=== PATIENT | female | born 1935 | race Caucasian/White ===

== ENCOUNTER → 2017-10-16 | Outpatient (CLI) | payer MEDICARE ==
[~2017-10-16] MED LIST: ADVI200T17 PO; ECASA81 PO; LISI10TA3 PO; VITA-142 PO; VITA10002 PO; VITA250T3 PO
[2017-10-16 10:51] LABS: AUTOMATED NEUTROPHIL # 3.7 TH/MM3 (1.8-7.7); BASOPHIL # 0.1 TH/MM3 (0-0.2); EOSINOPHIL # 0.3 TH/MM3 (0-0.4); EOSINOPHIL % 4.3 % (0.0-4.0); HEMATOCRIT 41.2 % (35.0-46.0); HEMOGLOBIN 13.6 GM/DL (11.6-15.3); LYMPH % 22.9 % (9.0-44.0); LYMPHOCYTE # 1.4 TH/MM3 (1.0-4.8); MEAN CELL VOLUME 89.8 FL (80.0-100.0); MEAN CORPUSCULAR HEMOGLOBIN 29.7 PG (27.0-34.0); MEAN CORPUSCULAR HGB CONC 33.1 % (32.0-36.0); MEAN PLATELET VOLUME 7.8 FL (7.0-11.0); MONO % 9.9 % (0.0-8.0); MONOCYTE # 0.6 TH/MM3 (0-0.9); NEUT % 61.9 % (16.0-70.0); PLATELET COUNT 238 TH/MM3 (150-450); RED BLOOD COUNT 4.58 MIL/MM3 (4.00-5.30); RED CELL DISTRIBUTION WIDTH 14.2 % (11.6-17.2)
[2017-10-16 10:57] LABS: PROTHROMBIN TIME - PATIENT 10.5 SEC (9.8-11.6)
[2017-10-16 10:58] LABS: BILIRUBIN, URINE NEG (NEG); BLOOD, URINE NEG (NEG); GLUCOSE,URINE NEG (NEG); KETONE, URINE NEG (NEG); MUCUS URINE FEW /lpf (OCC); NITRITE,URINE NEG (NEG); PH, URINE 5.5 (5.0-8.5); SQUAMOUS EPITHELIAL CELL URINE <1 /hpf (0-5); URINE COLOR YELLOW (YELLW/STRAW); URINE LEUKOCYTE ESTERASE NEG (NEG)
--- NOTE | 2017-10-16 11:01 | RADRPT ---
EXAM DATE/TIME: 10/16/2017 10:34 [facility] COMPARISON: No previous studies available for comparison. INDICATIONS : Evaluate for pneumonia, pneumothorax, and communicable disease. Preop for left knee arthroplasty. MEDICAL HISTORY : None. SURGICAL HISTORY : Hysterectomy. Appendectomy. Fatty tumor removal. ENCOUNTER: Initial ACUITY: 1 day PAIN SCORE: 0/10 LOCATION: Bilateral chest FINDINGS: Lungs are focally clear. No pleural effusion is evident. Cardiac contour is satisfactory. A moderate size hiatal hernia is present. There is degenerative change in the spine and mild accentuation of kyp hosis. CONCLUSION: No acute disease. Russ Singh MD on October 16, 2017 at 10:58 Board Certified Radiologist. This report was verified electronically.
[2017-10-16 11:06] LABS: BICARBONATE 28.4 MEQ/L (21.0-32.0); CALCIUM 9.5 MG/DL (8.5-10.1); CREATININE 0.85 MG/DL (0.50-1.00)
--- NOTE | 2017-10-16 13:41 | EKG ---
Date Performed: 10/16/2017 Time Performed: 09:36:58 PTAGE: 82 years EKG: Sinus rhythm NORMAL ECG No significant change from prior electrocardiogram. DOCTOR: Yared Hercules Interpretating Date/Time 10/16/2017 13:21:06
== END ==
LOC: CPRE 08:25
PROVIDERS: ATTEND Orthopaedic Surgery
DX: M23.90 Unspecified internal derangement of unspecified knee (principal); Z01.812 Encounter for preprocedural laboratory examination; Z01.810 Encounter for preprocedural cardiovascular examination; Z01.811 Encounter for preprocedural respiratory examination
CPT/HCPCS: 36415; 71046; 80048; 81001; 85025; 85610; 93005

== ENCOUNTER 2017-10-21 08:17 | Inpatient (IN) | payer MEDICARE ==
--- NOTE | 2017-10-17 15:47 | MH ---
cc: Fredy Rod MD DATE OF ADMISSION: 10/21/2017 ADMITTING DIAGNOSIS: Severe osteoarthritis of the left knee, varus deformity, left knee, pain of left knee and gait disturbance. HISTORY OF PRESENT ILLNESS: The patient is an 82-year-old white female with a longstanding history of bilateral knee pain. She had initially presented to the undersigned physician in January of 2015 complaining of bilateral knee pain of at least 5 years' duration, having been somewhat more pronounced on the right side. At that time, she noted that she had undergone previous arthroscopic surgery in approximately 1996, with an uneventful recovery being noted. Over the passage of time, thereafter, she developed obvious arthritic changes, initially being more pronounced on the right side for which she did to conform to conservative management, including use of anti-inflammatory medication. Her symptoms became more pronounced and, thus, in March 2015, she underwent right total knee arthroplasty, which was completed in an uncomplicated manner. The patient was noted to have tolerated her operative procedure well and her postoperative course was stable thereafter, but during this interval time, she experienced progressive pain about her left knee that became increasingly more symptomatic with the passage of time. She continued to conform to a therapy exercise program as had been instructed following her right knee surgery and utilizing anti-inflammatory medication, which included both Aleve and diclofenac that she was taking on a routine basis. During this interval of time, she also underwent several cortisone injections about the left knee without any long-term benefit being noted. Her symptoms handicapped her ability to conform to weightbearing activities for which she was utilizing a cane as an ambulatory aid. She returned to the office in more recent followup indicating that she was significantly handicapped with regard to her weightbearing activities and her daily routine, for which she was considering additional options for treatment. Her current x-ray studies revealed severe degenerative changes with [id number] apposition about the medial compartment, associated with a varus deformity of greater than 10 degrees magnitude. Once again, the involvement of total knee replacement was outlined with emphasis being made that the decision to proceed with surgery would be left entirely to the patient's discretion. The patient readily admitted that her symptoms had progressed to that point in time where she was ready to proceed in this direction and in compliance with her wishes, she has been scheduled for admission in order that the above be accomplished. PAST MEDICAL HISTORY, HOSPITALIZATIONS AND SURGERIES: In addition to her right total knee arthroplasty include radiation therapy of the uterus, followed by complete hysterectomy for history of cervical cancer, appendectomy, lipoma excision lower back area. Her current medical illnesses include hypertension for which she takes lisinopril 10 mg daily. She also takes an 81 mg aspirin tablet daily. ADDITIONAL MEDICATIONS: Include vitamin B12, vitamin C and vitamin E. She also takes Advil on a p.r.n. basis. ALLERGIES: THE PATIENT DESCRIBES A DRUG ALLERGY TO LIPITOR, WHICH HAS CAUSED CHEST PAIN, LATEX AND ADHESIVE TAPE HAVE CAUSED A RASH FORMATION. REVIEW OF SYSTEMS: She wears glasses. No headache, seizure or syncope. She has occasional sinus congestion with postnasal drip. No epistaxis. Auditory acuity intact. No tinnitus. No bleeding gums. She has occasional dysphagia. Wears partial upper and lower dentures. No cough, shortness of breath, upper respiratory infection, pneumonia or tuberculosis. No angina or heart disease. She is medically managed for hypertension. Appetite good. Bowel movements regular. No hepatitis, gallbladder disease or ulcers. There is a history of hemorrhoids. No urinary tract infection, no kidney stones. No history of fractures. No psychiatric illness. Her remaining review of systems is unremarkable and noncontributory. FAMILY HISTORY: The patient has been a for at least 21 years. at 63 years of age with a history of multiple sclerosis. Two daughters, both with history of thyroid disease. Her family history is otherwise positive for hypertension, heart disease, lung disease, dementia, tuberculosis, throat cancer, breast cancer and cancer of the brain area. 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 She completed a high school education. Denies active use of tobacco since 39 years of age, having been less than a 1 pack per day smoker for approximately 16 years previous. Ethanol consumption in the form of several beers per week. PHYSICAL EXAMINATION: VITAL SIGNS: Height 5 feet, weight 137 pounds. GENERAL: An alert, oriented, responsive 82-year-old white female who sits quietly upon the examination table, with no apparent distress. HEAD, EARS, EYES, NOSE AND THROAT: Pupils are equally round and reactive to light. Extraocular movements full. Sclerae are clear. External nares clear. External auditory canals clear. Dental intact, with dental bridges in place. Mucous membranes pink and moist. Pharynx clear. NECK: Supple, active mobility, with no significant pain. Carotid pulse palpable bilaterally. Trachea midline. Thyroid without enlargement. Fullness about the thyroid area is noted. LUNGS: Clear to auscultation and percussion. BACK: No CVA tenderness. No discomfort throughout the dorsolumbar spine. CARDIOVASCULAR: Regular rhythm. No murmur or gallop. ABDOMEN: Soft, nontender, bowel sounds present. PELVIC: Per primary care physician. EXTREMITIES: Left knee, there is a fullness about the knee consistent with redundancy of soft tissue. Medial joint line tenderness, without palpable deformity. Apprehension and compression sign negative. Pain is elicited within the 110 degree range of flexion with crepitation associated. 1+ collateral ligamentous laxity. Octaviano test and drawer sign negative. Pivot shift and Dionicio sign positive for medial compartment pain. Straight leg raising unremarkable at 80 degrees. Satisfactory mobility of the left hip, with no associated pain. Antalgic gait. NEUROLOGIC: Cranial nerves 2-12 grossly intact. IMPRESSION: Severe osteoarthritis of the left knee, varus deformity, left knee, pain left knee and gait disturbance. PLAN: Left total knee arthroplasty. Once again, the nature of the planned surgical procedure, the potential complications and risks associated, the expectations of surgery and the consent form were thoroughly reviewed with the patient in the presence of her grandson prior to admission to the hospital. Tonya has indicated her full understanding regarding all of the above and given consent to proceed with treatment as outlined. Medical evaluation and clearance for surgery will be completed by her primary care physician, Dr. Tavia Longoria. MD MITESH Maldonado/OLIVER , 05:01 PM , 05:38 PM
[~2017-10-21] VITALS: Ht 152.4 cm; Wt 62.4 kg
[2017-10-21] MEDS ORDERED: POVIDONE IODINE 5% (ANTISEPSIS KIT) 4 APPLICATIONS EACH NARE PRN (08:45)
[2017-10-21] MEDS ORDERED: LACTATED RINGER'S 1000 ML IV PRN (08:45)
[2017-10-21] MEDS ORDERED: TRANEXAMIC ACID 1 GM POST-OP IV SCH ×2 (08:45)
[2017-10-21] MEDS ORDERED: TRANEXAMIC ACID 1 GM PRIOR TO PROCEDURE IV SCH ×2 (08:45)
[2017-10-21] MEDS ORDERED: METOPROLOL TARTRATE 25 MG TAB PO PRN (08:45)
[2017-10-21] MEDS ORDERED: POVIDONE IODINE 7.5% SCRUB 118 ML BOTTLE TOPICAL SCH (08:45)
[2017-10-21] MEDS ORDERED: SODIUM CHLORID 0.9% 500 ML IV PRN (08:45)
[2017-10-21] MEDS ORDERED: CHLORHEXIDINE GLUCONATE 2 % 1 PACK (2 CLOTHS) TOPICAL PRN (08:45)
[2017-10-21] MEDS ORDERED: INSULIN HUMAN REGULAR 1,000 UNITS/10 ML VIAL SQ PRN (08:45)
[2017-10-21] MEDS ORDERED: MIDAZOLAM HCL 2 MG/2 ML VIAL ONE (09:22)
[2017-10-21] MEDS ORDERED: MIDAZOLAM HCL 2 MG/2 ML VIAL IV PUSH ONE (09:30)
[2017-10-21] MEDS ORDERED: ceFAZolin INJ 1,000 MG VIAL ONE (09:34)
[2017-10-21] MEDS ORDERED: BUPIVACAINE LIPOSOME PF 1.3% 20 ML VIAL ONE (09:37)
[2017-10-21] MEDS ORDERED: ROCURONIUM INJ 50 MG/5 ML SYRINGE IV PUSH ONE (12:00)
[2017-10-21] MEDS ORDERED: LIDOCAINE HCL 1% PF 5 ML SYRINGE OTHER ONE (12:00)
[2017-10-21] MEDS ORDERED: PROPOFOL 200 MG/20 ML AMP IV ONE (12:00)
[2017-10-21] MEDS ORDERED: ONDANSETRON HCL 4 MG/2 ML VIAL IV ONE (12:00)
[2017-10-21] MEDS ORDERED: DEXAMETHASONE SOD PHOS 4 MG/ML VIAL IV ONE (12:00)
[2017-10-21] MEDS ORDERED: ePHEDrine/NS 25 MG/5 ML SYRINGE IV ONE (12:00)
[2017-10-21] MEDS ORDERED: LACTATED RINGER'S 1000 ML INJ 1,000 ML IV ONE (12:00)
[2017-10-21] MEDS ORDERED: DO NOT ADM ANY ANTICOAGULANT DRUGS PRN (12:20)
--- NOTE | 2017-10-21 12:29 | HHI.FF ---
Face to Face Verification Diagnosis: (1) DJD (degenerative joint disease) of knee Physical Therapy Gait training Knee: Total knee, Protocol: Left, Full weight bearing Left LE Weight Bearing: WB as tolerated Left LE Range of Motion: Active ROM Nursing Dressing Changes: Daily dressing change I have seen patient Tonya Frances on 10/21/17. My clinical findings support the need for the requested home health care services because: Limited ability to care for self High risk of falls I certify that my clinical findings support that this patient is homebound because: Post-op weakness Unsteady gait/balance Unsafe to leave home unassisted Fredy Rod MD Oct 21, 2017 12:29
[2017-10-21] MEDS ORDERED: TRANEXAMIC ACID INJ 1,000 MG in SODIUM CHLORIDE 0.9% INJ 100 ML IV SCH (12:30)
[2017-10-21] MEDS ORDERED: ONDANSETRON HCL 4 MG/2 ML VIAL IVP PRN (12:30)
[2017-10-21] MEDS ORDERED: ACETAMINOPHEN/HYDROcodone 325 MG/5 MG TAB PO PRN (12:30)
[2017-10-21] MEDS ORDERED: DOCUSATE SODIUM 100 MG CAP PO PRN (12:30)
[2017-10-21] MEDS ORDERED: MORPHINE SULFATE 30 MG/30 ML PCA IV SCH (12:30)
[2017-10-21] MEDS ORDERED: NALOXONE HCL 0.4 MG/ML AMP IV PUSH PRN (12:30)
[2017-10-21] MEDS ORDERED: diphenhydrAMINE HCL 25 MG CAP PO PRN (12:30)
[2017-10-21] MEDS ORDERED: Post-op Orders (for Pharmacy) XX ONE (12:30)
[2017-10-21] MEDS ORDERED: ACETAMINOPHEN 325 MG TAB PO PRN (12:30)
--- NOTE | 2017-10-21 12:51 | MP ---
cc: Fredy Rod MD DATE OF OPERATION: 10/21/2017 PREOPERATIVE DIAGNOSIS: Severe osteoarthritis of the left knee, varus deformity left knee, pain left knee and gait disturbance. POSTOPERATIVE DIAGNOSIS: Severe osteoarthritis of the left knee, varus deformity left knee, pain left knee and gait disturbance. PROCEDURE PERFORMED: Left total knee arthroplasty. SURGEON: MD Marcel ANESTHESIA: General endotracheal. INDICATIONS: An 82-year-old white female with a longstanding history of bilateral knee pain, who had undergone previous evaluation with the undersigned physician in 2014, at which time she reported a 5-year history of pain initially being more pronounced on the right side. She had undergone previous arthroscopic surgery in 1996 with an uneventful recovery being noted, but with the passage of time she developed an obvious arthritic condition initially more pronounced on the right side for which she conformed to conservative management which included use of anti-inflammatory medications. Her symptoms became more pronounced and thus in March of 2015 she underwent a right total knee arthroplasty which was completed in an uncomplicated manner. The patient tolerated her operative procedure well and her postoperative course was unremarkable thereafter. During this interval of time, she began to note increasing symptoms involving her left knee that became more pronounced with the passage of time. She continued to conform to the therapy program as instructed following her right knee surgery as well as utilizing anti-inflammatory medication which included both Aleve and diclofenac. During this interval of time, she received several cortisone injections about her left knee without any long-term benefit being noted. Her symptoms began to handicap her ability to conform to all weightbearing activities for which she was utilizing a cane as an ambulatory aid. She return to the office in more recent followup indicating that she was having considerable difficulty with all weightbearing activities that was influencing her daily routine. She was ready to consider a more definitive course of treatment. Her current x-ray studies revealed severe degenerative changes with [id number]-[id number] apposition about the medial compartment, associated with a varus deformity of greater than 10 degrees magnitude. Once again, the involvement of total knee replacement was outlined with emphasis being made that the decision to proceed with surgery would be left entirely to the patient's discretion. The patient readily admitted that she had arrived at that point in time where she was ready to proceed in this direction and, in compliance with her wishes, she was scheduled for admission in order that a left total knee arthroplasty be completed. FORMAT: Following the induction of satisfactory general anesthesia as completed per the Department of Anesthesia via endotracheal intubation, a tourniquet was established around the proximal portion of the left lower extremity. The extremity proper was isolated with a U-drape thereafter being prepped with Betadine solution and draped into a sterile field in the routine manner. Prior to initiation of the actual procedure the standard timeout protocol was completed. All parameters were appropriately addressed and confirmed by operating room personnel. The extremity was elevated for approximately 1 minute and the tourniquet thus inflated to 250 mmHg pressure. A sharp skin incision was initiated midline over the anterior aspect of the knee and developed through underlying subcutaneous tissue with hemostasis maintained by electrocautery. By deepening dissection, the anterior capsule was exposed, a medial capsulotomy completed and the patella subluxed in a lateral orientation. Examination of the joint space, revealed severe degenerative changes throughout the medial compartment where there was complete erosion of articular cartilage and deformation of underlying cortical bone. Hypertrophic reaction was appreciated throughout the medial aspect of the joint. Degenerative changes extended throughout the remaining portion of the knee including the lateral compartment. The articular surface of the patella was resected. The 3-hole guide was utilized for establishing post-holes. Anterior cruciate ligament as well as medial and lateral meniscus structures were sharply excised. A centering hole was placed in the distal aspect of the femur, allowing positioning of the intramedullary guide. The distal femoral cutting jig was attached and the distal femur resected. AP measurement noted 65 mm sizing to be appropriate. The matching cutting block was positioned. Anterior, posterior and chamfer cuts were completed. The tibial plateau was thereafter subluxed in an anterior orientation allowing positioning of the extramedullary guide. The tibial plateau was resected and measured with 71 mm sizing determined to be satisfactory. A trial reduction followed utilizing a 65 mm femoral component, a 71 mm tibial base with both 10 and 12 mm bearing inserts trialed. The 12 mm thickness was determined to be the more favorable fit. The knee was readily brought to full extension. There was no laxity to varus and valgus stress at both 0 and 90 degrees flexed posture. Orientation was confirmed as appropriate with measurement of the pelvic guide through the mechanical axis of the knee. A trial reduction followed utilizing a 31 mm standard patellar button, once again good tracking noted with no tendency toward subluxation. All trial components being removed, the remaining portion of the proximal tibia was prepared for insertion of the permanent component. The joint space was thoroughly lavaged with pulsating antibiotic solution, hemostasis maintained by electrocautery. An autogenous bone plug was inserted into the distal femoral guide hole and thereafter a preparation of Palacos bone cement was utilized in inserting knee components in a sequential fashion, which included a 71 mm fixed cruciate tibial plate, to which a 12 mm Vanguard tibial bearing insert was secured with locking martinez. The 65 mm Vanguard femoral component was firmly seated onto the distal femur, excess cement being removed. The knee was brought to full extension and thereafter the 31 mm standard 3 post-patellar button was attached and maintained in place with patellar clamp while cement hardening was completed. Final range of motion assessment noted good tracking stability throughout the knee. Irrigation was repeated with hemostasis maintained. Autovac drain tubes were inserted through superior stab wound. The capsule was repaired with 0 Vicryl suture. The remaining portion of the wound was closed in layers in the routine manner, skin margins being reapproximated with a running subcuticular 3-0 Vicryl suture over which Steri-Strips were applied. Xeroform gauze and a bulky dry sterile dressing were placed. The tourniquet was deflated after 47 minutes of tourniquet time, the extremity being supported in a canvas knee splint. Anesthesia was discontinued. She was thereafter transferred to a hospital bed and returned to the recovery room in satisfactory condition, having tolerated her operative procedure well. Estimated blood loss was approximately 75 mL. All implants were of the [employer] public relations manager. MD MITESH Maldonado/RAVI , 12:23 PM , 12:50 PM
[2017-10-21] MEDS: DEXT 5%-NACL 0.45% 1000 ML INJ 1,000 ML IV SCH ×2 (13:15→22:20)
--- NOTE | 2017-10-21 13:19 | RADRPT ---
EXAM DATE/TIME: 10/21/2017 12:49 [facility] COMPARISON: No previous studies available for comparison. INDICATIONS : Post op left knee arthroplasty. MEDICAL HISTORY : None. SURGICAL HISTORY : Hysterectomy. Appendectomy. Fatty tumor removal. ENCOUNTER: Initial ACUITY: 1 day PAIN SCORE: 0/10 LOCATION: Left knee FINDINGS: 2 views of the knee show a total knee prosthesis in good position. No fracture or dislocation is obse rved. Soft tissue swelling is noted. CONCLUSION: Total knee prosthesis in good position. Laron Ramirez Jr., MD on October 21, 2017 at 13:16 Board Certified Radiologist. This report was verified electronically.
[2017-10-21] MEDS ORDERED: *LABETALOL HCL 100 MG/20 ML VIAL PERIprocedural Use ONLY ONE (14:00)
[2017-10-21 15:45] VITALS: BP 169/79; PULSE 71; RESP 18; TEMP 97.2; O2SAT 97
[2017-10-21 20:45] VITALS: BP 121/55; PULSE 64; RESP 17; TEMP 97.3; O2SAT 95
[2017-10-21] MEDS ORDERED: ZOLPIDEM TARTRATE 5 MG TAB PO PRN (21:00)
[2017-10-21 22:20] VITALS: RESP 17
[2017-10-21] MEDS: PCA - TOTAL MG MORPHINE DELIVERED PER SHIFT SCH (22:20)
[2017-10-21 23:45] VITALS: BP 111/53; PULSE 70; RESP 17; TEMP 97.6; O2SAT 96
[2017-10-22] VITALS (8 sets, daily range): BP systolic 121–155; BP diastolic 58–72; PULSE 67–94; RESP 17–18; TEMP 97.5–99; O2SAT 94–98
[2017-10-22] MEDS: DEXT 5%-NACL 0.45% 1000 ML INJ 1,000 ML IV SCH ×3 (04:25→20:25)
[2017-10-22] MEDS: PCA - TOTAL MG MORPHINE DELIVERED PER SHIFT SCH ×3 (05:14→22:07)
[2017-10-22] MEDS ORDERED: ASPI-183 PO (06:13)
[2017-10-22] MEDS ORDERED: HYDR-3516 PO (06:13)
[2017-10-22] MEDS ORDERED: WALKER WHEELS/F1 MIS (06:15)
[2017-10-22 06:21] LABS: HEMATOCRIT 31.3 % (35.0-46.0); HEMOGLOBIN 10.4 GM/DL (11.6-15.3)
[2017-10-22] MEDS: RIVAROXABAN 10 MG TAB PO SCH (11:43)
--- NOTE | 2017-10-22 13:42 | HHI.HP ---
[facility] Tavia Longoria MD Admission Diagnosis Diagnoses: Travel History International Travel<30 Days: No Contact w/Intl Traveler <30 Da: No Traveled to Known Affected Are: No History of Present Illness Patient is an 82-year-old female with past medical history of hypertension, cervical cancer, is admitted under the orthopedic surgery service for left total knee arthroplasty. She is POD#1. She has a history of severe arthritis. Patient tells me that she had tried conservative management including injections with not know much success. She opted for surgical management. Currently her pain is a 5-6 out of 10. Pain medication does help with the pain. Denies any nausea or vomiting. Denies any chest pain or shortness of breath. Hospital service has been consulted for assistance with medical management. Review of Systems Except as stated in HPI: all other systems reviewed are Neg Past Family Social History Past Medical History cervical cancer, hypertension Past Surgical History Right and left total knee replacement. Hysterectomy, appendectomy, lipoma excision. Arthroscopic surgery 1990s Reported Medications Reported Meds & Active Scripts Active Walker with Front Wheels (Device) 1 Mis Mis Ea .XX DIRECTED use as directed Aspirin 325 Mg Tab 325 Mg PO BID Hydrocodone-Acetamin 5-325 mg (Hydrocodone/Acetaminophen) 5 Mg-325 Mg Tablet 2 Tab PO Q4H PRN 30 Days Reported Advil Pm (Ibuprofen-Diphenhydramine) 200-38 Mg Tab 1 Tab PO HS PRN Aspirin DR (Aspirin) 81 Mg Tabdr 81 Mg PO DAILY Vitamin E (Vitamin E Acetate) 400 Unit Capsule 400 Cap PO DAILY Vitamin C (Ascorbic Acid) 250 Mg Tab 250 Mg PO DAILY Vitamin B-12 (Cyanocobalamin) 1,000 Mcg Tab 1,000 Mcg PO DAILY Lisinopril 10 Mg Tab 10 Mg PO DAILY Allergies: Coded Allergies: latex (Verified Allergy, Unknown, RASH WITHIN 20 MINUTES, 10/16/17) adhesive (Unverified Adverse Reaction, Unknown, RASH, 10/16/17) Family History Mother had hypertension, father had pneumonia/TB Social History Quit smoking at the age of 39. Started at the age of 23 And drinks less than 2-3 beers a week Denies illegal drug use Physical Exam Vital Signs Vital Signs Date Time Temp Pulse Resp B/P (MAP) Pulse Ox O2 Delivery O2 Flow Rate FiO2 10/22/17 08:00 98.1 75 18 121/59 (79) 96 10/22/17 05:17 18 10/22/17 05:14 18 10/22/17 03:50 97.5 67 17 131/62 (85) 96 10/21/17 23:45 97.6 70 17 111/53 (72) 96 10/21/17 22:20 17 10/21/17 22:20 17 10/21/17 20:45 97.3 64 17 121/55 (77) 95 10/21/17 20:00 Room Air 10/21/17 15:45 97.2 71 18 169/79 (109) 97 10/21/17 15:41 Room Air 10/21/17 15:30 65 14 158/75 (102) 95 Room Air 10/21/17 14:45 14 10/21/17 14:30 72 14 146/67 (93) 97 Room Air Physical Exam GENERAL: Pleasant elderly female, sitting up on recliner. CARDIOVASCULAR: Regular rate and rhythm without murmurs RESPIRATORY: Clear to auscultation. Breath sounds equal bilaterally. No wheezes GASTROINTESTINAL: Abdomen soft, non-tender, nondistended.No guarding. MUSCULOSKELETAL: Extremities without edema. Dressing over her knee with drain in place NEUROLOGICAL: Awake and alert. Normal speech. Laboratory Laboratory Tests Test 10/22/17 04:20 Hemoglobin 10.4 Hematocrit 31.3 Result Diagram: 10/22/17 0420 Imaging Last Impressions Knee X-Ray 10/21/17 1225 Signed Impressions: Service Date/Time: Saturday, October 21, 2017 12:49 - CONCLUSION: Total knee prosthesis in good position. MD Hilton Gallegos Jr.i VTE Risk Assessment Caprini VTE Risk Assessment: Mod/High Risk (score >= 2) Caprini Risk Assessment Model Point Value = 1 Point Value = 2 Point Value = 3 Point Value = 5 Age 41-60 Minor surgery BMI > 25 kg/m2 Swollen legs Varicose veins or History of unexplained or recurrent spontaneous Oral contraceptives or hormone replacement Sepsis (< 1 month) Serious lung disease, including pneumonia (< 1 month) Abnormal pulmonary function Acute myocardial infarction Congestive heart failure (< 1 month) History of inflammatory bowel disease Medical patient at bed rest Age 61-74 Arthroscopic surgery Major open surgery (> 45 min) Laparoscopic surgery (> 45 min) Malignancy Confined to bed (> 72 hours) Immobilizing plaster cast Central venous access Age >= 75 History of VTE Family history of VTE Factor V Leiden Prothrombin [id number] Lupus anticoagulant Anticardiolipin antibodies Elevated serum homocysteine Heparin-induced thrombocytopenia Other congenital or acquired thrombophilia Stroke (< 1 month) Elective arthroplasty Hip, pelvis, or leg fracture Acute spinal cord injury (< 1 month) Prophylaxis Regimen Total Risk Factor Score Risk Level Prophylaxis Regimen 0-1 Low Early ambulation 2 Moderate Order ONE of the following: *Sequential Compression Device (SCD) *Heparin 5000 units SQ BID 3-4 Higher Order ONE of the following medications: *Heparin 5000 units SQ TID *Enoxaparin/Lovenox 40 mg SQ daily (WT < 150 kg, CrCl > 30 mL/min) *Enoxaparin/Lovenox 30 mg SQ daily (WT < 150 kg, CrCl > 10-29 mL/min) *Enoxaparin/Lovenox 30 mg SQ BID (WT < 150 kg, CrCl > 30 mL/min) AND/OR *Sequential Compression Device (SCD) 5 or more Highest Order ONE of the following medications: *Heparin 5000 units SQ TID (Preferred with Epidurals) *Enoxaparin/Lovenox 40 mg SQ daily (WT < 150 kg, CrCl > 30 mL/min) *Enoxaparin/Lovenox 30 mg SQ daily (WT < 150 kg, CrCl > 10-29 mL/min) *Enoxaparin/Lovenox 30 mg SQ BID (WT < 150 kg, CrCl > 30 mL/min) AND *Sequential Compression Device (SCD) Assessment and Plan Assessment and Plan Left total knee arthroplasty: Postop day 1. Pain management, anticoagulation, rehabilitation, antibiotics per orthopedic surgery. Bowel regimen in place. Hb 10.4 post op. Monitor Hypertension: Stable. I have resume patient's home lisinopril. Add Vasotec as needed for elevated blood pressures DVT proph: xarelto Thank you for allowing me to take part of Mrs. Frances's care, will continue to follow Code Status full Discussed Condition With patient Mansi Hoyt MD Oct 22, 2017 13:41
[2017-10-22] MEDS ORDERED: ENALAPRILAT 1.25 MG/ML VIAL IV PUSH PRN (13:45)
[2017-10-23] MEDS: DEXT 5%-NACL 0.45% 1000 ML INJ 1,000 ML IV SCH ×3 (04:25→20:25)
[2017-10-23] MEDS: PCA - TOTAL MG MORPHINE DELIVERED PER SHIFT SCH ×3 (06:00→22:00)
[2017-10-23 06:58] LABS: HEMATOCRIT 32.6 % (35.0-46.0); HEMOGLOBIN 10.8 GM/DL (11.6-15.3)
[2017-10-23 08:00] VITALS: BP 172/75; PULSE 87; RESP 16; TEMP 98.6; O2SAT 93
[2017-10-23] MEDS: LISINOPRIL 10 MG TAB PO SCH (08:44)
[2017-10-23] MEDS: ACETAMINOPHEN/HYDROcodone 325 MG/5 MG TAB PO PRN (08:44)
--- NOTE | 2017-10-23 09:23 | HHI.PR ---
Subjective Remarks Pt feeling well. No CP/SOB/N/V No concerns at this time. Objective Vitals Vital Signs Date Time Temp Pulse Resp B/P (MAP) Pulse Ox O2 Delivery O2 Flow Rate FiO2 10/23/17 08:00 98.6 87 16 172/75 (107) 93 10/23/17 06:00 18 10/22/17 23:15 99.0 84 18 155/71 (99) 94 10/22/17 22:07 18 10/22/17 22:05 18 10/22/17 20:00 97.7 94 17 127/58 (81) 97 10/22/17 19:50 Room Air 10/22/17 16:00 98.2 82 17 137/63 (87) 97 10/22/17 14:00 16 10/22/17 12:00 98.0 73 18 128/72 (90) 98 I/O 10/22/17 10/22/17 10/22/17 10/23/17 10/23/17 10/23/17 07:00 15:00 23:00 07:00 15:00 23:00 Intake Total 360 ml 480 ml 480 ml Output Total 0 ml 0 ml 60 ml 20 ml Balance 360 ml 480 ml -60 ml 460 ml Intake Oral 360 ml 480 ml 480 ml Drainage Total 0 ml 0 ml 60 ml 20 ml # Voids 3 2 4 # Bowel Movements 0 0 0 Result Diagram: 10/23/17 0456 Imaging Last Impressions Knee X-Ray 10/21/17 1225 Signed Impressions: Service Date/Time: Saturday, October 21, 2017 12:49 - CONCLUSION: Total knee prosthesis in good position. Laron Ramirez Jr., MD Objective Remarks GENERAL: Pleasant elderly female, sitting up on recliner. CARDIOVASCULAR: Regular rate and rhythm without murmurs RESPIRATORY: Clear to auscultation. Breath sounds equal bilaterally. No wheezes GASTROINTESTINAL: Abdomen soft, non-tender, nondistended.No guarding. MUSCULOSKELETAL: Extremities without edema. Dressing over her knee, d/c/i NEUROLOGICAL: Awake and alert. Normal speech. A/P Assessment and Plan Left total knee arthroplasty: Postop day 2. Pain management, anticoagulation, rehabilitation, antibiotics per orthopedic surgery. Bowel regimen in place. Hb 10.8 post op today. Monitor Hypertension: Somewhat elevated this morning but hadn't yet received lisinopril dose. continue lisinopril. Has Vasotec as needed for elevated blood pressures DVT proph: xarelto Discharge Planning per primary team Medically she is doing well. Mansi Hoyt MD Oct 23, 2017 09:23
[2017-10-23 12:00] VITALS: BP 137/65; PULSE 80; RESP 16; TEMP 97.6; O2SAT 92
[2017-10-23] MEDS ORDERED: MISCELLANEOUS PHARMACY INFORMATION XX SCH (12:00)
[2017-10-23] MEDS: RIVAROXABAN 10 MG TAB PO SCH (12:19)
[2017-10-23 16:00] VITALS: BP 174/74; PULSE 84; RESP 16; TEMP 97.9; O2SAT 93
[2017-10-23 18:15] VITALS: BP 128/60; PULSE 98; RESP 20; TEMP 97.2; O2SAT 96
[2017-10-23 23:10] VITALS: BP 161/74; PULSE 92; RESP 17; TEMP 99.2; O2SAT 96
[2017-10-24] MEDS: DEXT 5%-NACL 0.45% 1000 ML INJ 1,000 ML IV SCH (04:25)
[2017-10-24] MEDS: PCA - TOTAL MG MORPHINE DELIVERED PER SHIFT SCH (05:34)
[2017-10-24] MEDS: ACETAMINOPHEN/HYDROcodone 325 MG/5 MG TAB PO PRN (06:38)
--- NOTE | 2017-10-24 06:38 | MD ---
cc: Fredy Rod MD, Roxy MD DATE OF DISCHARGE: 10/24/2017 ADMITTING DIAGNOSES: Severe osteoarthritis of the left knee, varus deformity left knee, pain left knee and gait disturbance. DISCHARGE DIAGNOSES: Severe osteoarthritis of the left knee, varus deformity left knee, pain left knee and gait disturbance. HISTORY OF PRESENT ILLNESS: An 82-year-old white female with a longstanding history of bilateral knee pain as related to osteoarthritis. She had conformed to conservative management in the past which included all the standard modalities of conservative intervention only to become progressively more symptomatic with pain with the passage of time. She subsequently underwent a right total knee arthroplasty in 03/2015 having tolerated her operative procedure well and then had an uneventful recovery thereafter. Over time, she became increasingly more symptomatic with pain about her left knee for which more recent x-ray studies had demonstrated severe degenerative changes with [id number] apposition about the medial compartment associated with a varus deformity of greater than 10 degrees magnitude. At that time, the patient felt she was ready to proceed with further disposition and in compliance with her wishes, she was scheduled for admission at this time in order that left total knee arthroplasty be completed. For additional details with regard to her pertinent history, interested parties are directed to her admitting history and physical document. Her physical examination at the time of admission revealed a fullness about the left knee consistent with redundancy of soft tissue. There was medial joint line tenderness without palpable deformity. Apprehension and compression sign negative. Pain was elicited in the 110 degree range of flexion with crepitation associated. 1+ collateral ligamentous laxity. Octaviano test and drawer sign negative. Pivot shift and Dionicio sign positive for medial compartment pain. Straight leg raising unremarkable at 80 degrees. Satisfactory mobility of the left hip with no associated pain, antalgic gait. HOSPITAL COURSE: Prior to admission to the hospital, the patient had undergone medical evaluation and clearance for surgery as completed by her primary care physician, Dr. Tavia Longoria. She was taken to the operating room on 10/21/2017 and on that date underwent a left total knee arthroplasty completed in an uncomplicated manner. The patient tolerated her operative procedure well; her postoperative course stable thereafter. Hemoglobin and hematocrit assessment postoperatively was 10.4 and 31.3 respectively. The patient was progressively mobilized under the guidance of physical therapy being permitted weightbearing to tolerance about the left lower extremity. Followup examination of her surgical wound noted to be intact healing favorably with no evidence of infection. Medical followup per the hospitalist service, DVT prophylaxis initiated, renal social worker consulted to assist with discharge planning. The patient had indicated her desire to be discharged home and continue her rehabilitation on an outpatient basis. Plans were finalized in this regard and pending medical clearance, she was scheduled for discharge on the third postoperative day, at which time she was noted to be making favorable progress with regard to her rehabilitation program. She was scheduled to be seen in office followup in approximately 4 weeks. Her condition at the time of discharge, stable and prognosis favorable. DISCHARGE MEDICATIONS: Included hydrocodone 5/325, #60, aspirin 325 mg 1 tab twice daily for 3 weeks, #40. Fredy Rod MD NBS/DL , 06:15 AM , 06:38 AM
[2017-10-24 08:00] VITALS: BP 157/71; PULSE 89; RESP 16; TEMP 98.4; O2SAT 95
[2017-10-24 08:00] LABS: HEMOGLOBIN 11.2 GM/DL (11.6-15.3)
[2017-10-24] MEDS: LISINOPRIL 10 MG TAB PO SCH (08:26)
--- NOTE | 2017-10-24 10:30 | HHI.PR ---
Subjective Remarks Stable in her bedroom no nausea, vomit or diarrhea, okay to discharge from medical Standpoint. Objective Vital Signs Date Time Temp Pulse Resp B/P (MAP) Pulse Ox O2 Delivery O2 Flow Rate FiO2 10/24/17 08:29 Room Air 10/24/17 08:00 98.4 89 16 157/71 (99) 95 10/24/17 07:38 18 10/23/17 23:10 99.2 92 17 161/74 (103) 96 10/23/17 21:38 Room Air 10/23/17 18:15 97.2 98 20 128/60 (82) 96 10/23/17 16:00 97.9 84 16 174/74 (107) 93 10/23/17 12:00 97.6 80 16 137/65 (89) 92 I/O 10/23/17 10/23/17 10/23/17 10/24/17 10/24/17 10/24/17 07:00 15:00 23:00 07:00 15:00 23:00 Intake Total 480 ml 600 ml 640 ml Output Total 20 ml Balance 460 ml 600 ml 640 ml Intake Oral 480 ml 600 ml 640 ml Drainage Total 20 ml # Voids 4 3 5 # Bowel Movements 0 0 0 Result Diagram: 10/24/17 0615 Imaging Last Impressions Knee X-Ray 10/21/17 1225 Signed Impressions: Service Date/Time: Saturday, October 21, 2017 12:49 - CONCLUSION: Total knee prosthesis in good position. Laron Ramirez Jr., MD Procedures Left Total knee arthroplasty Other Results Laboratory Tests Test 10/24/17 06:15 Hemoglobin 11.2 GM/DL Hematocrit 34.0 % Objective Remarks GENERAL: Pleasant elderly female, sitting up on recliner. CARDIOVASCULAR: Regular rate and rhythm without murmurs RESPIRATORY: Clear to auscultation. Breath sounds equal bilaterally. No wheezes GASTROINTESTINAL: Abdomen soft, non-tender, nondistended.No guarding. MUSCULOSKELETAL: Left knee with Orthotics in place. NEUROLOGICAL: Awake and alert. Normal speech. Medications and IVs Current Medications Medications (Trade) Dose Ordered Sig/Blade Route Start Time Stop Time Status Last Admin (Xarelto) 10 mg Q24H PO 10/22/17 12:00 10/23/17 12:19 ([place] 5-325 Mg) 1 tab Q4H PRN PO 10/21/17 12:30 10/24/17 06:38 ([place] 5-325 Mg) 2 tab Q4H PRN PO 10/21/17 12:30 (Tylenol) 650 mg Q6H PRN PO 10/21/17 12:30 (Zofran Inj) 4 mg Q6H PRN IVP 10/21/17 12:30 (Colace) 100 mg BID PRN PO 10/21/17 12:30 10/23/17 08:46 (Ambien) 5 mg HS PRN PO 10/21/17 21:00 (Narcan Inj) 0.4 mg UNSCH PRN IV PUSH 10/21/17 12:30 (Benadryl) 25 mg Q6H PRN PO 10/21/17 12:30 [employer] Dosage Infused (Pha) 1 Q8HR .XX 10/21/17 14:00 10/23/17 06:00 Dextrose/Sodium Chloride 1,000 ml @ 125 mls/hr Q8H IV 10/21/17 12:25 10/22/17 12:35 (Prinivil) 10 mg DAILY PO 10/23/17 09:00 10/24/17 08:26 (Vasotec Inj) 1.25 mg Q6H PRN IV PUSH 10/22/17 13:45 A/P Assessment and Plan Left total knee arthroplasty: Pain management, anticoagulation, rehabilitation , antibiotics per orthopedic surgery. Bowel regimen in place. Hb 10.8 post op today. Monitor Hypertension: Somewhat elevated this morning but hadn't yet received lisinopril dose. continue lisinopril. Has Vasotec as needed for elevated blood pressures DVT proph: xarelto Discharge Planning Okay from Medicine for discharge. Thierno Summers MD Oct 24, 2017 10:30
== END 2017-10-24 11:15 | disposition home health service (06) | DRG 470 ==
LOC: HSDI 08:17 → N06A 15:43
PROVIDERS: ADMIT Orthopaedic Surgery; ATTEND Orthopaedic Surgery
PROC: 0SRD0J9 Replacement of Left Knee Joint with Synthetic Substitute, Cemented, Open Approach (ICD-10-PCS; principal; 2017-10-21 10:00)
DX: M17.12 Unilateral primary osteoarthritis, left knee (principal); I10 Essential (primary) hypertension; M21.162 Varus deformity, not elsewhere classified, left knee; Z96.651 Presence of right artificial knee joint; Z85.41 Personal history of malignant neoplasm of cervix uteri; Z92.3 Personal history of irradiation; Z87.891 Personal history of nicotine dependence
CPT/HCPCS: 73560; 85014; 85018; 86850; 86900; 86901; 88300; 88305; 94150; C1776; C9290; J0690; J1100; J2250; J2270; J2405; J3010; J7120; L1830